=== PATIENT | male | born 1995 | race Caucasian/White ===

== ENCOUNTER 2017-03-17 13:59 | Inpatient (IN) | payer BC ==
[2017-03-17 16:25] VITALS: BMI 27.2
--- NOTE | 2017-03-17 17:28 | HP ---
COWS - Scale Resting Pulse: 2= OR 101-120 Sweatin= Chills/Flushing Restless Observation: 1= Difficult to Sit Still Pupil Size: 0= Normal to Room Light Bone or Joint Aches: 2= Severe Diffuse Aches Runny Nose/ Eye Tearin= Runny Nose/Eyes GI Upset > 30mins: 2= Nausea/Diarrhea Tremor Observation: 2= Slight Tremor Visible Yawning Observation: 0= None Anxiety or Irritability: 2=Irritable/Anxious Goose Flesh Skin: 0=Smooth Skin COWS Score: 14 Admission [facility] Chief Complaint: withdrawal sx Allergies/Adverse Reactions: Allergies Allergy/AdvReac Type Severity Reaction Status Date / Time No Known Allergies Allergy Verified 03/17/17 17:23 History of Present Illness: 21 years old male with long history of opiate nicotine dependence denies medical issue had depression is admitted to detox Exam Limitations: No Limitations - Ebola screening Have you traveled outside of the country in the last 21 days: No Have you had contact with anyone from an Ebola affected area: No Have you been sick,other than usual withdrawal symptoms: No Do you have a fever: No - Review of Systems Constitutional: Changes in sleep, Weight Stable EENT: reports: 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) Respiratory: reports: No Symptoms reported Cardiac: reports: No Symptoms Reported GI: reports: Nausea, Poor Fluid Intake, Indigestion, Abdominal cramping : reports: No Symptoms Reported Musculoskeletal: reports: Back Pain, Joint Pain, Muscle Pain, Neck Pain Integumentary: reports: No Symptoms Reported Neuro: reports: Seizure (last episode 9 years old), Tremors Endocrine: reports: No Symptoms Reported Hematology: reports: No Symptoms Reported Psychiatric: reports: Judgement Intact, Orientated x3, Depressed Other Systems: Reviewed and Negative Patient History - Patient Medical History Hx Anemia: No Hx Asthma: No Hx Chronic Obstructive Pulmonary Disease (COPD): No Hx Cancer: No Hx Cardiac Disorders: No Hx Congestive Heart Failure: No Hx Hypertension: No Hx Hypercholesterolemia: No Hx Pacemaker: No HX Cerebrovascular Accident: No Hx Seizures: No Hx Dementia: No Hx Diabetes: No Hx Gastrointestinal Disorders: Yes Hx Liver Disease: No Hx Genitourinary Disorders: No Hx Sexually Transmitted Disorders: No Hx Renal Disease (ESRD): No Hx Thyroid Disease: No Hx Human Immunodeficiency Virus (HIV): No Hx Hepatitis C: No Hx Depression: Yes Hx Suicide Attempt: Yes (age 14 over dose) Hx Bipolar Disorder: No Hx Schizophrenia: No - Patient Surgical History Past Surgical History: Yes Hx Neurologic Surgery: No Hx Cataract Extraction: No Hx Cardiac Surgery: No Hx Lung Surgery: No Hx Breast Surgery: No Hx Breast Biopsy: No Hx Abdominal Surgery: No Hx Appendectomy: No Hx Cholecystectomy: No Hx Genitourinary Surgery: No Hx Orthopedic Surgery: No Other Surgical History: right ear 3 years old Anesthesia Reaction: No - PPD History Previous Implant?: Yes Documented Results: Negative w/o proof Implanted On Prior R Admission?: No PPD to be Administered?: Yes - Smoking Cessation Smoking history: Current every day smoker Have you smoked in the past 12 months: Yes Aproximately how many cigarettes per day: 15 Cigars Per Day: 0 Hx Chewing Tobacco Use: No Initiated information on smoking cessation: Yes 'Breaking Loose' booklet given: 03/17/17 - Substance & Tx. History Hx Alcohol Use: No Hx Substance Use: Yes Substance Use Type: Heroin Hx Substance Use Treatment: No - Substances Abused Heroin Route: Injection Frequency: Daily Amount used: 4 bags Age of first use: 17 Date of Last Use: 03/16/17 Family Disease History - Family Disease History Family Disease History: Heart Disease: Father, Mother, Respiratory: Grandparent Admission Physical Exam BHS - Vital Signs Vital Signs: Vital Signs - 24 hr 03/17/17 16:23 Temperature 97.1 F L Pulse Rate 108 H Respiratory 18 Rate Blood Pressure 130/87 - Physical General Appearance: Yes: Appropriately Dressed, Mild Distress, Tremorous, Irritable, Sweating, Anxious HEENTM: Yes: Hearing grossly Normal, Normal ENT Inspection, Normocephalic, Normal Voice Respiratory: Yes: Chest Non-Tender, Lungs Clear, Normal Breath Sounds, No Respiratory Distress, No Accessory Muscle Use Neck: Yes: Supple, Trachea in good position Breast: Yes: Breasts Symetrical Cardiology: Yes: Regular Rhythm, S1, S2, Tachycardia Abdominal: Yes: Non Tender, Soft, Increased Bowel Sounds Genitourinary: Yes: Within Normal Limits Back: Yes: Normal Inspection Musculoskeletal: Yes: full range of Motion, Gait Steady, Back pain, Muscle Pain Extremities: Yes: Normal Range of Motion, Non-Tender, Tremors Neurological: Yes: Fully Oriented, Alert, Motor Strength 5/5, Normal Mood/Affect , Depressed Affect Integumentary: Yes: Warm, Track [place] Lymphatic: Yes: Within Normal Limits - Diagnostic (1) Opioid dependence with withdrawal Current Visit: Yes Status: Acute (2) GERD (gastroesophageal reflux disease) Current Visit: Yes Status: Chronic Qualifiers: Esophagitis presence: without esophagitis Qualified Code(s): K21.9 - Gastro-esophageal reflux disease without esophagitis (3) Nicotine dependence Current Visit: Yes Status: Acute Qualifiers: Nicotine product type: cigarettes Substance use status: in withdrawal Qualified Code(s): F17.213 - Nicotine dependence, cigarettes, with withdrawal (4) Depression Current Visit: Yes Status: Suspected Qualifiers: Depression Type: dysthymia Qualified Code(s): F34.1 - Dysthymic disorder Cleared for Admission [facility] - Detox or Rehab [facility] Level of Care: Medically Managed Detox Regimen/Protocol: Methadone [facility] Breath Alcohol Content Breath Alcohol Content: 0 Urine Drug Screen - Results Drug Screen Negative: No Urine Drug Screen Results: OPI-Opiates
[2017-03-17] MEDS ORDERED: LOPERAMIDE HCL 2 MG CAPSULE PO PRN (17:30)
[2017-03-17] MEDS ORDERED: METHADONE HCL 10 MG TABLET (FOR DETOX USE ONLY) PO ONE ×2 (17:30→23:00)
[2017-03-17] MEDS ORDERED: diphenhydrAMINE HCL 50 MG CAPSULE PO PRN (17:30)
[2017-03-17] MEDS ORDERED: MAGNESIUM CITRATE 300 ML BOTTLE PO PRN (17:30)
[2017-03-17] MEDS ORDERED: MENTHOL/PHENOL 1 EACH UD MM PRN (17:30)
[2017-03-17] MEDS ORDERED: guaiFENesin/D-METHORPHAN HB 10 ML UNIT-DOSE CUPS PO PRN (17:30)
[2017-03-17] MEDS ORDERED: MAG HYDROX/AL HYDROX/SIMETH 30 ML UNIT-DOSE CUP PO PRN (17:30)
[2017-03-17] MEDS ORDERED: NICOTINE POLACRILEX 4 MG GUM BC PRN (17:30)
[2017-03-17] MEDS ORDERED: MAGNESIUM HYDROX 2400MG/30ML ORAL SUSPENSION 30 ML CUP PO PRN (17:30)
[2017-03-17] MEDS ORDERED: P-EPHED 60MG/TRIPROLIDI 2.5MG TABLET PO PRN (17:30)
[2017-03-17] MEDS: diazePAM 5 MG TABLET PO PRN ×2 (18:37→22:23)
[2017-03-17] MEDS: ACETAMINOPHEN 325 MG TABLET (FP) PO PRN (19:09)
[2017-03-17 21:12] LABS: URINE APPEARANCE TURBID; URINE BLOOD NEGATIVE (NEGATIVE); URINE COLOR AMBER; URINE GLUCOSE (UA) NEGATIVE (NEGATIVE); URINE KETONE 1+ (NEGATIVE); URINE LEUK ESTERASE NEGATIVE (NEGATIVE); URINE NITRITE NEGATIVE (NEGATIVE); URINE UROBILINOGEN NEGATIVE mg/dL (0.2-1.0)
[2017-03-17 21:17] LABS: URINE PROTEIN 1+ (NEGATIVE)
[2017-03-17 21:21] LABS: URINE BACTERIA RARE /hpf (NONE SEEN); URINE MUCUS MANY; URINE RBC 3 /hpf (0-3); URINE WBC 29 /hpf (3-5)
[2017-03-17] MEDS: THIAMINE HCL 100 MG TABLET (FP) PO SCH (22:22)
[2017-03-17] MEDS: RANITIDINE HCL 150 MG TABLET (FP) PO SCH (22:22)
[2017-03-18] MEDS: diazePAM 5 MG TABLET PO PRN ×4 (05:41→20:07)
--- NOTE | 2017-03-18 09:50 | PN ---
BHS COWS - Scale Resting Pulse: 1= [place] 81-100 Sweatin=Flushed/Facial Moisture Restless Observation: 1= Difficult to Sit Still Pupil Size: 0= Normal to Room Light Bone or Joint Aches: 2= Severe Diffuse Aches Runny Nose/ Eye Tearin= Runny Nose/Eyes GI Upset > 30mins: 2= Nausea/Diarrhea Tremor Observation of Outstretched Hands: 2= Slight Tremor Visible Yawning Observation: 1= 1-2x During Session Anxiety or Irritability: 2=Irritable/Anxious Goose Flesh Skin: 0=Smooth Skin COWS Score: 15 BHS Progress Note (SOAP) Subjective: Anxiety,tremors,sweating,muscle aches/spasm,interrupted sleep Objective: 03/18/17 09:49 Last Vital Signs Temp Pulse Resp BP Pulse Ox 99 F 89 18 121/75 03/18/17 09:30 03/18/17 09:30 03/18/17 09:30 03/18/17 09:30 Laboratory Last Values Urine Color Kristy 03/17/17 20:00 Urine Appearance Turbid 03/17/17 20:00 Urine pH 5.0 (5.0-8.0) 03/17/17 20:00 Ur Specific [place] >= 1.030 (1.005-1.025) H 03/17/17 20:00 Urine Protein 1+ (NEGATIVE) H 03/17/17 20:00 Urine Glucose (UA) Negative (NEGATIVE) 03/17/17 20:00 Urine Ketones 1+ (NEGATIVE) H 03/17/17 20:00 Urine Blood Negative (NEGATIVE) 03/17/17 20:00 Urine Nitrite Negative (NEGATIVE) 03/17/17 20:00 Urine Bilirubin 4.0 (NEGATIVE) 03/17/17 20:00 Urine Urobilinogen Negative mg/dL (0.2-1.0) 03/17/17 20:00 Ur Leukocyte Esterase Negative (NEGATIVE) 03/17/17 20:00 Urine RBC 3 /hpf (0-3) 03/17/17 20:00 Urine WBC 29 /hpf (3-5) 03/17/17 20:00 Ur Epithelial Cells Rare /hpf (FEW) 03/17/17 20:00 Urine Bacteria Rare /hpf (NONE SEEN) 03/17/17 20:00 Urine Mucus Many 03/17/17 20:00 U/A noted we'll repeat in AM Assessment: 03/18/17 09:50 Withdrawal sx. Plan: Continue detox
[2017-03-18] MEDS ORDERED: METHADONE HCL 10 MG TABLET (FOR DETOX USE ONLY) PO ONE (10:00)
[2017-03-18] MEDS: RANITIDINE HCL 150 MG TABLET (FP) PO SCH ×2 (10:08→22:31)
[2017-03-18] MEDS: PRENATAL VITAMINS W/ FOLIC ACID TABLET (FP) PO SCH (10:08)
[2017-03-18] MEDS: NICOTINE 21 MG/24 HOURS TOPICAL PATCH TD SCH (10:08)
[2017-03-18 10:11] LABS: MCH 29.2 pg (25.7-33.7); MCHC 34.7 g/dl (32.0-35.9); MEAN CELL VOLUME 84.2 fl (80-96); MEAN PLT VOLUME 7.1 fl (7.5-11.1); PLATELET COUNT 146 K/MM3 (134-434); RDW 12.8 % (11.9-15.9); WHITE BLOOD COUNT 4.6 K/mm3 (4.0-10.0)
[2017-03-18 10:48] LABS: ALBUMIN 4.3 g/dl (3.4-5.0); ALK PHOS 106 U/L (45-117); ANION GAP 7 (8-16); BILIRUBIN,TOTAL 1.8 mg/dL (0.2-1.0); CALCIUM 9.2 mg/dL (8.5-10.1); CO2 31 mmol/L (21-32); CREATININE 0.9 mg/dL (0.7-1.3); GLUCOSE,RANDOM 94 mg/dL (74-106); SGOT/AST 21 U/L (15-37); SGPT/ALT 32 U/L (12-78); TOT PROT 6.7 g/dl (6.4-8.2)
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
[2017-03-18] MEDS: ACETAMINOPHEN 325 MG TABLET (FP) PO PRN (13:48)
[2017-03-18] MEDS ORDERED: QUEtiapine FUMARATE 50 MG TABLET PO SCH (22:00)
[2017-03-18] MEDS ORDERED: QUEtiapine FUMARATE 100 MG TABLET (FP) PO SCH (22:00)
[2017-03-18] MEDS: busPIRone HCL 10 MG TABLET (FP) PO SCH (22:31)
[2017-03-18] MEDS: THIAMINE HCL 100 MG TABLET (FP) PO SCH (22:31)
--- NOTE | 2017-03-19 09:45 | PN ---
S COWS - Scale Resting Pulse: 1= [place] 81-100 Sweatin=Flushed/Facial Moisture Restless Observation: 1= Difficult to Sit Still Pupil Size: 1= Pupils >than Normal Bone or Joint Aches: 2= Severe Diffuse Aches Runny Nose/ Eye Tearin= Nasal Congestion GI Upset > 30mins: 1= Stomach Cramp Tremor Observation of Outstretched Hands: 1= Tremor [place], Not Seen Yawning Observation: 0= None Anxiety or Irritability: 2=Irritable/Anxious Goose Flesh Skin: 0=Smooth Skin COWS Score: 12 S Progress Note (SOAP) Subjective: sweats, shakes, diarrhea, want to see [facility] again for meds re-eval. Objective: 03/19/17 09:43 Vital Signs Temperature 98.2 F 03/18/17 21:24 Pulse Rate 76 03/18/17 21:24 Respiratory Rate 18 03/19/17 00:30 Blood Pressure 119/73 03/18/17 21:24 O2 Sat by Pulse Oximetry (%) Laboratory Tests 03/17/17 03/17/17 03/18/17 07:00 20:00 07:00 WBC 4.6 RBC 5.12 Hgb 14.9 Hct 43.1 MCV 84.2 MCH 29.2 MCHC 34.7 RDW 12.8 Plt Count 146 MPV 7.1 L Sodium Potassium Chloride Carbon Dioxide Anion Gap BUN Creatinine Creat Clearance w eGFR Random Glucose Calcium Total Bilirubin AST ALT Alkaline Phosphatase Total Protein Albumin Urine Color Kristy Urine Appearance Turbid Urine pH 5.0 Ur Specific [place] >= 1.030 H Urine Protein 1+ H Urine Glucose (UA) Negative Urine Ketones 1+ H Urine Blood Negative Urine Nitrite Negative Urine Bilirubin 4.0 Urine Urobilinogen Negative Ur Leukocyte Esterase Negative Urine RBC 3 Urine WBC 29 Ur Epithelial Cells Rare Urine Bacteria Rare Urine Mucus Many Hepatitis C Antibody <0.1 03/18/17 07:00 WBC RBC Hgb Hct MCV MCH MCHC RDW Plt Count MPV Sodium 141 Potassium 3.6 Chloride 103 Carbon Dioxide 31 Anion Gap 7 L BUN 7 Creatinine 0.9 Creat Clearance w eGFR > 60 Random Glucose 94 Calcium 9.2 Total Bilirubin 1.8 H AST 21 ALT 32 Alkaline Phosphatase 106 Total Protein 6.7 Albumin 4.3 Urine Color Urine Appearance Urine pH Ur Specific [place] Urine Protein Urine Glucose (UA) Urine Ketones Urine Blood Urine Nitrite Urine Bilirubin Urine Urobilinogen Ur Leukocyte Esterase Urine RBC Urine WBC Ur Epithelial Cells Urine Bacteria Urine Mucus Hepatitis C Antibody pt aox3 in nad lying in bed Assessment: 03/19/17 09:44 withdrawal sx's anxious Plan: cont. detox increase fluids imodium prn pysch re-eval requested
[2017-03-19] MEDS ORDERED: METHADONE HCL 5 MG TABLET (FOR DETOX USE ONLY) PO ONE (10:00)
[2017-03-19] MEDS: ESCITALOPRAM OXALATE 20 MG TABLET (FP) PO SCH (10:15)
[2017-03-19] MEDS: PRENATAL VITAMINS W/ FOLIC ACID TABLET (FP) PO SCH (10:15)
[2017-03-19] MEDS: RANITIDINE HCL 150 MG TABLET (FP) PO SCH ×2 (10:15→22:32)
[2017-03-19] MEDS: busPIRone HCL 10 MG TABLET (FP) PO SCH ×2 (10:15→22:32)
[2017-03-19] MEDS: diazePAM 5 MG TABLET PO PRN ×4 (10:15→22:33)
[2017-03-19] MEDS: NICOTINE 21 MG/24 HOURS TOPICAL PATCH TD SCH (10:18)
--- NOTE | 2017-03-19 10:54 | PN ---
Psychiatric Progress Note Vital Signs: Vital Signs Period Temp Pulse Resp BP Sys/Pablo Pulse Ox Last 24 Hr 97.9 F-98.2 F 68-88 16-18 100-145/53-83 Date of Session: 03/19/17 Chief Complaint:: Insomnia HPI: Patient reports taking prior to admission Seroquel 200mg po qhs Current Medications: Active Medications Generic Name Dose Route Start Last Admin Trade Name Freq PRN Reason Stop Dose Admin Acetaminophen 650 mg 03/17/17 17:30 03/18/17 13:48 Tylenol - PO 650 mg Q4H PRN Administration FEVER OR PAIN Al Hydroxide/Mg Hydroxide 30 ml 03/17/17 17:30 Mylanta Oral Suspension - PO Q6H PRN DYSPEPSIA Buspirone HCl 10 mg 03/18/17 22:00 03/19/17 10:15 Buspar - PO 10 mg BID ARLYN Administration Cyclobenzaprine HCl 10 mg 03/19/17 10:37 Flexeril - PO TID PRN MUSCLE SPASMS Diazepam 10 mg 03/17/17 17:30 03/19/17 10:15 Valium - PO 03/20/17 17:29 10 mg Q4H PRN Administration WITHDRAWAL(CONT SUBST) Diphenhydramine HCl 50 mg 03/17/17 17:30 03/17/17 22:23 Benadryl - PO 50 mg HSMR1 PRN Administration INSOMNIA Escitalopram Oxalate 20 mg 03/19/17 10:00 03/19/17 10:15 Lexapro - PO 20 mg DAILY ARLYN Administration Eucalyptus/Menthol/Phenol/Sorbitol 1 each 03/17/17 17:30 Cepastat Lozenge - MM Q4H PRN SORE THROAT Guaifenesin 10 ml 03/17/17 17:30 Robitussin Dm - PO Q6H PRN COUGH Loperamide HCl 4 mg 03/17/17 17:30 Imodium - PO Q6H PRN DIARRHEA Magnesium Citrate 300 ml 03/17/17 17:30 Citroma - PO Q48H PRN CONSTIPATION Magnesium Hydroxide 30 ml 03/17/17 17:30 Milk Of Magnesia - PO DAILY PRN CONSTIPATION Methadone HCl 10 mg 03/21/17 10:00 Dolophine - PO 03/21/17 10:01 ONCE ONE Methadone HCl 15 mg 03/20/17 10:00 Dolophine - PO 03/20/17 10:01 ONCE ONE Methadone HCl 5 mg 03/22/17 06:00 Dolophine - PO 03/22/17 06:01 ONCE@0600 ONE Nicotine 21 mg 03/18/17 10:00 03/19/17 10:18 Nicoderm Patch - TD 21 mg DAILY ARLYN Administration Nicotine Polacrilex 4 mg 03/17/17 17:30 Nicorette Gum - BC Q2H PRN NICOTINE REPLACEMENT RX Multivit/Folic Acid/Iron 1 tab 03/18/17 10:00 03/19/17 10:15 Vitamins (Sjr) - PO 1 tab DAILY ARLYN Administration Pseudoephedrine/Triprolidine 1 combo 03/17/17 17:30 Actifed - PO TID PRN NASAL CONGESTION Quetiapine Fumarate 200 mg 03/19/17 10:51 Seroquel - PO HS ARLYN Ranitidine HCl 150 mg 03/17/17 22:00 03/19/17 10:15 Zantac - PO 150 mg BID ARLYN Administration Thiamine HCl 100 mg 03/17/17 22:00 03/18/17 22:31 Vitamin B1 - PO 100 mg HS ARLYN Administration Medication(s) Change(s): Seroquel 200mg po qhs Mental Status Exam - Mental Status Exam Alert and Oriented to: Person Cognitive Function: Fair Patient Appearance: Unkempt Mood: Apprehensive Affect: Mood Congruent Patient Behavior: Cooperative Speech Pattern: Appropriate Voice Loudness: Mildly Soft/Quiet Thought Process: Goal Oriented Thought Disorder: Being Controlled Hallucinations: Denies Suicidal Ideation: Denies Homicidal Ideation: Denies Insight/Judgement: Fair Sleep: Difficulty falling asleep Appetite: Weight loss Muscle strength/Tone: Normal Gait/Station: Normal Additional Comments: Seroquel 200mg po qhs Psychiatric Treatment Plan - Problem List (1) Insomnia Current Visit: Yes (2) Nicotine dependence Current Visit: Yes Qualifiers: Nicotine product type: cigarettes Substance use status: in withdrawal Qualified Code(s): F17.213 - Nicotine dependence, cigarettes, with withdrawal (3) Opioid dependence with withdrawal Current Visit: Yes (4) MDD (major depressive disorder) Current Visit: Yes (5) Drug-induced mood disorder Current Visit: Yes Initial treatment plan: Seroquel 200mg po qhs
--- NOTE | 2017-03-19 11:31 | EKG ---
Test Reason : Blood Pressure : / mmHG Vent. Rate : 091 BPM Atrial Rate : 091 BPM P-R Int : 134 ms QRS Dur : 104 ms QT Int : 360 ms P-R-T Axes : 074 087 058 degrees QTc Int : 442 ms NORMAL SINUS RHYTHM NORMAL ECG NO PREVIOUS ECGS AVAILABLE Confirmed by KOJO GARNICA, ANYA ([id number]) on 03/19/2017 11:31:36 AM Referred By: Confirmed By:ANYA VARMA MD
[2017-03-19] MEDS: ACETAMINOPHEN 325 MG TABLET (FP) PO PRN (14:14)
[2017-03-19 18:03] LABS: URINE APPEARANCE SLCLOUDY; URINE BILIRUBIN NEGATIVE (NEGATIVE); URINE BLOOD NEGATIVE (NEGATIVE); URINE COLOR AMBER; URINE GLUCOSE (UA) NEGATIVE (NEGATIVE); URINE KETONE NEGATIVE (NEGATIVE); URINE LEUK ESTERASE NEGATIVE (NEGATIVE); URINE NITRITE NEGATIVE (NEGATIVE); URINE PROTEIN NEGATIVE (NEGATIVE); URINE UROBILINOGEN NEGATIVE mg/dL (0.2-1.0)
[2017-03-19] MEDS: CYCLOBENZAPRINE HCL 10 MG TABLET (FP) PO PRN (22:32)
[2017-03-19] MEDS: QUEtiapine FUMARATE 200 MG TABLET PO SCH (22:33)
[2017-03-19] MEDS: THIAMINE HCL 100 MG TABLET (FP) PO SCH (22:33)
[2017-03-20] MEDS ORDERED: METHADONE HCL 5 MG TABLET (FOR DETOX USE ONLY) PO ONE (10:00)
[2017-03-20] MEDS: CYCLOBENZAPRINE HCL 10 MG TABLET (FP) PO PRN ×2 (10:10→22:21)
[2017-03-20] MEDS: RANITIDINE HCL 150 MG TABLET (FP) PO SCH ×2 (10:10→22:21)
[2017-03-20] MEDS: ESCITALOPRAM OXALATE 20 MG TABLET (FP) PO SCH (10:10)
[2017-03-20] MEDS: diazePAM 5 MG TABLET PO PRN ×2 (10:10→14:51)
[2017-03-20] MEDS: PRENATAL VITAMINS W/ FOLIC ACID TABLET (FP) PO SCH (10:10)
[2017-03-20] MEDS: busPIRone HCL 10 MG TABLET (FP) PO SCH ×2 (10:10→22:21)
[2017-03-20] MEDS: NICOTINE 21 MG/24 HOURS TOPICAL PATCH TD SCH (10:11)
--- NOTE | 2017-03-20 10:27 | PN ---
BHS Progress Note (SOAP) Subjective: sweats chills nausea diarrhea interrupted sleep Objective: 03/20/17 10:22 Vital Signs Temperature 98.1 F 03/20/17 09:55 Pulse Rate 89 03/20/17 09:55 Respiratory Rate 20 03/20/17 09:55 Blood Pressure 118/75 03/20/17 09:55 O2 Sat by Pulse Oximetry (%) awake/alert ambulating no acute distress Assessment: 03/20/17 10:22 withdrawal sx Plan: continue detox increase fluids
[2017-03-20] MEDS ORDERED: hydrOXYzine PAMOATE 50 MG CAPSULE (FP) PO PRN (15:58)
[2017-03-20] MEDS: THIAMINE HCL 100 MG TABLET (FP) PO SCH (22:21)
[2017-03-20] MEDS: QUEtiapine FUMARATE 200 MG TABLET PO SCH (22:21)
[2017-03-21 06:33] VITALS: TEMP 97.9
--- NOTE | 2017-03-21 08:51 | DS ---
[facility] Detox Discharge Summary Admission Date: 03/17/17 Discharge Date: 03/21/17 - History Present History: Opioid Dependence - Physical Exam Results Vital Signs: Vital Signs Temperature 97.9 F 03/21/17 06:32 Pulse Rate 68 03/21/17 06:32 Respiratory Rate 16 03/21/17 06:32 Blood Pressure 119/64 03/21/17 06:32 O2 Sat by Pulse Oximetry (%) - Treatment Hospital Course: Detox Protocol Followed, Detoxed Safely, Responded well, Discharged Condition Good, Rehab Referral Accepted - Medication Discharge Medications: Ambulatory Orders Buspirone HCl [Buspar -] 7.5 mg PO BID 03/17/17 Escitalopram Oxalate [Lexapro -] 20 mg PO DAILY 03/17/17 Ibuprofen [Motrin -] 400 mg PO PRN PRN 03/17/17 Methocarbamol [Robaxin -] 750 mg PO TID 03/17/17 Quetiapine Fumarate [Seroquel -] 200 mg PO HS 03/17/17 Buspirone HCl [Buspar -] 10 mg PO BID #30 tablet 03/18/17 Escitalopram Oxalate [Lexapro -] 20 mg PO DAILY #30 tablet 03/18/17 Quetiapine Fumarate [Seroquel -] 200 mg PO HS #30 tab 03/18/17 Quetiapine Fumarate [Seroquel -] 200 mg PO HS #30 tab 03/19/17 - Diagnosis (1) Drug-induced mood disorder Current Visit: Yes Status: Chronic (2) Insomnia Current Visit: Yes Status: Acute (3) Nicotine dependence Current Visit: Yes Status: Acute Qualifiers: Nicotine product type: cigarettes Substance use status: uncomplicated Qualified Code(s): F17.210 - Nicotine dependence, cigarettes, uncomplicated (4) Opioid dependence with withdrawal Current Visit: Yes Status: Acute (5) Substance induced mood disorder Current Visit: Yes Status: Acute (6) GERD (gastroesophageal reflux disease) Current Visit: Yes Status: Chronic Qualifiers: Esophagitis presence: without esophagitis Qualified Code(s): K21.9 - Gastro-esophageal reflux disease without esophagitis (7) MDD (major depressive disorder) Current Visit: Yes Status: Chronic (8) Depression Current Visit: Yes Status: Suspected Qualifiers: Depression Type: dysthymia Qualified Code(s): F34.1 - Dysthymic disorder - AMA Did Patient Leave Against Medical Advice: No (Pt is being p/u by [facility] to begin rehab)
[2017-03-21] MEDS: busPIRone HCL 10 MG TABLET (FP) PO SCH (09:41)
[2017-03-21] MEDS: RANITIDINE HCL 150 MG TABLET (FP) PO SCH (09:41)
[2017-03-21] MEDS: ESCITALOPRAM OXALATE 20 MG TABLET (FP) PO SCH (09:41)
[2017-03-21] MEDS: PRENATAL VITAMINS W/ FOLIC ACID TABLET (FP) PO SCH (09:41)
[2017-03-21] MEDS ORDERED: METHADONE HCL 10 MG TABLET (FOR DETOX USE ONLY) PO ONE (10:00)
[2017-03-21 10:35] VITALS: BP 133/81; PULSE 97
[2017-03-22] MEDS ORDERED: METHADONE HCL 5 MG TABLET (FOR DETOX USE ONLY) PO ONE (06:00)
== END 2017-03-21 10:13 | disposition home or self-care (01) | DRG 897 ==
LOC: YASAS 13:59 → Y6N 18:01
PROVIDERS: ADMIT Internal Medicine; ATTEND Internal Medicine
PROC: HZ2ZZZZ Detoxification Services for Substance Abuse Treatment (ICD-10-PCS; principal; 2017-03-21)
DX: F11.23 Opioid dependence with withdrawal (principal); F33.9 Major depressive disorder, recurrent, unspecified; F17.210 Nicotine dependence, cigarettes, uncomplicated; F19.24 Other psychoactive substance dependence with psychoactive substance-induced mood disorder; F34.1 Dysthymic disorder; K21.9 Gastro-esophageal reflux disease without esophagitis; G47.00 Insomnia, unspecified
CPT/HCPCS: 36415; 80053; 81003; 81015; 85027; 86593; 86803; 93005; 93010